=== PATIENT | male | born 2000 | race African-American/Black ===

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

== ENCOUNTER 2022-01-29 19:39 | Emergency (ER) | payer SELFPAY ==
[~2022-01-29] VITALS: Ht 195.6 cm; Wt 84.1 kg
[2022-01-29 19:54] VITALS: TEMP 98.4
[2022-01-29 20:56] VITALS: BP 121/77; PULSE 67
== END 2022-01-29 21:33 | disposition home or self-care (01) ==
LOC: COL.ER 19:39
DX: S86.912A Strain of unspecified muscle(s) and tendon(s) at lower leg level, left leg, initial encounter (principal); W18.40XA Slipping, tripping and stumbling without falling, unspecified, initial encounter; Y93.67 Activity, basketball
CPT/HCPCS: L1846

== ENCOUNTER 2024-08-04 07:21 | Emergency (ER) | payer OTHER ==
[~2024-08-04] VITALS: Ht 193 cm; Wt 86.8 kg
[~2024-08-04 07:21] MED LIST changes: +SILVADEN TOP
[2024-08-04 07:35] VITALS: BP 134/73; TEMP 97.7
[2024-08-04 08:47] VITALS: PULSE 60
== END 2024-08-04 08:47 | disposition home or self-care (01) ==
LOC: COL.ER 07:21
DX: S60.221A Contusion of right hand, initial encounter (principal); X58.XXXA Exposure to other specified factors, initial encounter; Y93.71 Activity, boxing